=== PATIENT | male | born 1990 | race Caucasian/White ===

== ENCOUNTER 2022-04-28 15:14 | Emergency (ER) | payer MEDICAID, OTHER ==
[~2022-04-28] VITALS: Ht 172.7 cm; Wt 59.0 kg
[~2022-04-28 15:14] MED LIST: ABX; MEDICAL MARIJUANA
[2022-04-28 15:56] VITALS: BP_SYST 141
[2022-04-28] MEDS ORDERED: BACITRACIN 1 GM OINT TP ONE (16:30)
[2022-04-28 17:06] VITALS: BP_SYST 141
== END 2022-04-28 17:06 | disposition home or self-care (01) ==
LOC: SED 15:14
DX: S61.012A Laceration without foreign body of left thumb without damage to nail, initial encounter (principal); W26.0XXA Contact with knife, initial encounter; Y93.89 Activity, other specified; Y92.89 Other specified places as the place of occurrence of the external cause; Y99.8 Other external cause status
CPT/HCPCS: 99282